=== PATIENT | male | born 1985 | race Caucasian/White ===

== ENCOUNTER 2017-05-18 17:06 | Observation (INO) | payer SELFPAY ==
[~2017-05-18] VITALS: Ht 170.2 cm; Wt 97.9 kg
[2017-05-18] MEDS ORDERED: aspirin 81mg tab.chew PO ONE (17:20)
[2017-05-18 17:49] LABS: BASOPHILS % (AUTO) 0.3 % (0-1); EOSINOPHILS # (AUTO) 0.2 X10'3 (0-0.9); EOSINOPHILS % (AUTO) 2.2 % (0-6); HEMATOCRIT 48.3 % (42.0-52.0); HEMOGLOBIN 16.7 g/dl (14.0-17.9); LYMPHOCYTES # (AUTO) 1.4 X10'3 (1.1-4.8); MEAN CORPUSCULAR HEMOGLOBIN 26.6 PG (27.0-31.0); MEAN CORPUSCULAR HGB CONC 34.6 % (33.0-36.5); MEAN CORPUSCULAR VOLUME 77.1 FL (78-98); MEAN PLATELET VOLUME 9.1 FL (7.4-10.4); MONOCYTES # (AUTO) 0.4 X10'3 (0-0.9); NEUTROPHILS # (AUTO) 5.4 X10'3 (1.8-7.7); NEUTROPHILS % (AUTO) 72.5 % (42-75); PLATELET COUNT 272 X10'3 (140-440); RED BLOOD COUNT 6.27 X10'6 (4.70-6.10); RED CELL DISTRIBUTION WIDTH 12.8 % (11.5-14.5); WHITE BLOOD COUNT 7.4 X10'3 (4.5-11.0)
[2017-05-18 18:01] LABS: INR 0.9 INR; PARTIAL THROMBOPLASTIN TIME 25 SECONDS (22-32); PROTHROMBIN TIME 9.5 SECONDS (9.0-12.0)
[2017-05-18 18:06] LABS: ALANINE AMINOTRANSFERASE 49 U/L (12-78); ALBUMIN 3.9 G/DL (3.4-5.0); ALBUMIN/GLOBULIN RATIO 0.9 (1.1-1.5); ALKALINE PHOSPHATASE 81 IU/L (46-116); ANION GAP 11 (8-16); ASPARTATE AMINO TRANSFERASE 20 U/L (10-37); BILIRUBIN,TOTAL 0.6 MG/DL (0.1-1.0); BLOOD UREA NITROGEN 18 MG/DL (7-18); BUN/CREATININE RATIO 17.3 (5.4-32.0); CALCIUM 9.3 MG/DL (8.5-10.1); CHLORIDE 102 MMOL/L (99-107); CREATININE 1.04 MG/DL (0.60-1.10); GLUCOSE 292 MG/DL (70-104); POTASSIUM 4.1 MMOL/L (3.5-5.1); SODIUM 138 MMOL/L (135-145); TOTAL CARBON DIOXIDE 25.3 MMOL/L (24-32); TOTAL PROTEIN 8.2 G/DL (6.4-8.2); eGFR 83 ML/MIN
[2017-05-18] MEDS ORDERED: nitroGLYCERIN 0.4mg SUBLingual tab SL PRN (21:15)
[2017-05-19] VITALS (10 sets, daily range): BP systolic 130–151; BP diastolic 94–107
[2017-05-19] MEDS ORDERED: mag hydrox/Alum hydrox/simeth 30ml oral suspension PO PRN (02:35)
[2017-05-19] MEDS ORDERED: ondansetron/PF 4mg/2ml inj IV PRN (02:35)
[2017-05-19] MEDS ORDERED: magnesium hydroxide 30ml (MOM) UD suspension PO PRN (02:35)
[2017-05-19] MEDS ORDERED: acetaminophen 325mg tablet PO PRN ×2 (02:35)
[2017-05-19] MEDS ORDERED: dextrose 50%-water 50ml dispensing syringe IV PRN ×2 (02:40)
[2017-05-19] MEDS ORDERED: MESSAGE TO PHARMACY PO ONE (02:40)
[2017-05-19] MEDS ORDERED: glucagon, human recombinant 1mg kit SUBCUT PRN (02:40)
[2017-05-19] MEDS ORDERED: insulin Lispro (HumaLOG) vial - multi-dose SQ SCH (02:40)
[2017-05-19] MEDS ORDERED: dextrose ORAL solution 15 GM/59 ML bottle PO PRN ×2 (02:40)
[2017-05-19 04:07] LABS: HEMOGLOBIN A1C 8.9 % (4.5-6.2)
[2017-05-19] MEDS ORDERED: NO HOME MEDS (07:28)
[2017-05-19] MEDS ORDERED: aminophylline 250mg/10ml inj. IV PRN (07:45)
[2017-05-19] MEDS ORDERED: metoprolol tartrate 1mg/ml inj IV PRN (07:45)
[2017-05-19] MEDS ORDERED: regadenoson 0.4mg/5ml syringe IV ONE ×2 (07:45→10:09)
[2017-05-19] MEDS ORDERED: nitroGLYCERIN 0.4mg SUBLingual tab SL PRN (07:45)
[2017-05-19] MEDS ORDERED: heparin, porcine 5000 units/ml vial SQ SCH (08:00)
[2017-05-19] MEDS ORDERED: aminophylline inj. 0 ML IV ONE (10:09)
[2017-05-19] MEDS ORDERED: insulin glargine (Lantus) pen - multi-dose SQ SCH (21:00)
== END 2017-05-19 14:09 | disposition left against medical advice (07) ==
LOC: ER 17:06 → ED HOLD 05-19 02:46
PROVIDERS: ADMIT Internal Medicine; ATTEND Internal Medicine
DX: R07.89 Other chest pain (principal); E78.00 Pure hypercholesterolemia, unspecified; E11.9 Type 2 diabetes mellitus without complications; I10 Essential (primary) hypertension; E78.5 Hyperlipidemia, unspecified; Z87.891 Personal history of nicotine dependence; Z82.3 Family history of stroke
CPT/HCPCS: 36415; 71045; 78452; 80053; 83036; 84484; 85025; 85610; 85730; 87070; 93005; 93017; 96372; 99285; A9500; G0378; J1644; J0280; J1815

== ENCOUNTER 2017-05-19 15:49 | Observation (INO) | payer SELFPAY ==
[~2017-05-19] VITALS: Ht 172.7 cm; Wt 96.0 kg
[~2017-05-19 15:49] MED LIST: NO HOME MEDS
[2017-05-19] MEDS ORDERED: aspirin 81mg tab.chew PO ONE (17:05)
[2017-05-19] MEDS ORDERED: mag hydrox/Alum hydrox/simeth 30ml oral suspension PO PRN (18:45)
[2017-05-19] MEDS ORDERED: thiamine 100mg/ml 2ml inj. IV ONE (18:45)
[2017-05-19] MEDS ORDERED: nitroGLYCERIN 0.4mg SUBLingual tab SL PRN (18:45)
[2017-05-19] MEDS ORDERED: MESSAGE TO PHARMACY PO ONE (18:45)
[2017-05-19] MEDS ORDERED: insulin Lispro (HumaLOG) vial - multi-dose SQ SCH (18:45)
[2017-05-19] MEDS ORDERED: LORazepam 1 MG tablet PO PRN (18:45)
[2017-05-19] MEDS ORDERED: magnesium hydroxide 30ml (MOM) UD suspension PO PRN (18:45)
[2017-05-19] MEDS ORDERED: magnesium 2GM in 50ml NS 50 ML IV PRN (18:45)
[2017-05-19] MEDS ORDERED: LORazepam 2 mg/ml vial IV PRN (18:45)
[2017-05-19] MEDS ORDERED: potassium Cl 20 mEq SR tablet PO PRN ×2 (18:45)
[2017-05-19] MEDS ORDERED: metoprolol tartrate 1mg/ml inj IV PRN (18:45)
[2017-05-19] MEDS ORDERED: potassium Cl 40MEQ/NS 500ml 500 ML IV PRN ×2 (18:45)
[2017-05-19] MEDS ORDERED: regadenoson 0.4mg/5ml syringe IV PRN (18:45)
[2017-05-19] MEDS ORDERED: acetaminophen 325mg tablet PO PRN (18:45)
[2017-05-19] MEDS ORDERED: magnesium Cl slow-release 64mg tablet PO PRN (18:45)
[2017-05-19] MEDS ORDERED: magnesium 4gm in 100ml NS 100 ML IV PRN (18:45)
[2017-05-19] MEDS ORDERED: dextrose ORAL solution 15 GM/59 ML bottle PO PRN ×2 (18:45)
[2017-05-19] MEDS ORDERED: glucagon, human recombinant 1mg kit SUBCUT PRN (18:45)
[2017-05-19] MEDS ORDERED: ondansetron/PF 4mg/2ml inj IV PRN (18:45)
[2017-05-19] MEDS ORDERED: dextrose 50%-water 50ml dispensing syringe IV PRN ×3 (18:45)
[2017-05-19] MEDS ORDERED: aminophylline 250mg/10ml inj. IV PRN (18:45)
[2017-05-19] MEDS ORDERED: morphine 4 MG/ML inj SYRINge IV PRN ×2 (18:45)
[2017-05-19] MEDS: heparin, porcine 5000 units/ml vial SQ SCH (19:46)
[2017-05-19] MEDS ORDERED: insulin glargine (Lantus) pen - multi-dose SQ SCH (21:00)
[2017-05-20] VITALS (9 sets, daily range): BP systolic 128–154; BP diastolic 80–104
[2017-05-20 06:17] LABS: BASOPHILS % (AUTO) 0.5 % (0-1); EOSINOPHILS # (AUTO) 0.2 X10'3 (0-0.9); EOSINOPHILS % (AUTO) 2.5 % (0-6); HEMOGLOBIN 16.2 g/dl (14.0-17.9); LYMPHOCYTES # (AUTO) 1.8 X10'3 (1.1-4.8); LYMPHOCYTES % (AUTO) 23.8 % (21-51); MEAN CORPUSCULAR HEMOGLOBIN 26.6 PG (27.0-31.0); MEAN CORPUSCULAR HGB CONC 34.4 % (33.0-36.5); MEAN CORPUSCULAR VOLUME 77.3 FL (78-98); MEAN PLATELET VOLUME 8.8 FL (7.4-10.4); MONOCYTES # (AUTO) 0.7 X10'3 (0-0.9); MONOCYTES % (AUTO) 9.3 % (2-12); NEUTROPHILS # (AUTO) 4.7 X10'3 (1.8-7.7); NEUTROPHILS % (AUTO) 63.9 % (42-75); PLATELET COUNT 247 X10'3 (140-440); RED BLOOD COUNT 6.08 X10'6 (4.70-6.10); RED CELL DISTRIBUTION WIDTH 12.9 % (11.5-14.5); WHITE BLOOD COUNT 7.4 X10'3 (4.5-11.0)
[2017-05-20 06:40] LABS: ALANINE AMINOTRANSFERASE 63 U/L (12-78); ALBUMIN 3.4 G/DL (3.4-5.0); ALBUMIN/GLOBULIN RATIO 0.9 (1.1-1.5); ALKALINE PHOSPHATASE 60 IU/L (46-116); ANION GAP 12 (8-16); BILIRUBIN,TOTAL 0.9 MG/DL (0.1-1.0); BLOOD UREA NITROGEN 19 MG/DL (7-18); BUN/CREATININE RATIO 21.8 (5.4-32.0); CALCIUM 9.3 MG/DL (8.5-10.1); CHLORIDE 104 MMOL/L (99-107); CHOL/HDL RATIO 5.4 (0.00-4.99); CHOLESTEROL 210 MG/DL (0-200); CREATININE 0.87 MG/DL (0.60-1.10); GLUCOSE 216 MG/DL (70-104); HDL CHOLESTEROL 39 MG/DL (35-60); LDL CHOLESTEROL 117 MG/DL (50-100); SODIUM 140 MMOL/L (135-145); TOTAL PROTEIN 7.3 G/DL (6.4-8.2); TRIGLYCERIDES 405 MG/DL (20-135); eGFR > 90 ML/MIN
[2017-05-20 06:47] LABS: ASPARTATE AMINO TRANSFERASE 31 U/L (10-37); BILIRUBIN,DIRECT 0.1 MG/DL (0-0.3); POTASSIUM 4.4 MMOL/L (3.5-5.1)
[2017-05-20] MEDS ORDERED: K and/or MAG REPLACEMENT MC SCH (08:00)
[2017-05-20] MEDS ORDERED: regadenoson 0.4mg/5ml syringe IV ONE (08:38)
[2017-05-20] MEDS ORDERED: aminophylline inj. 0 ML IV ONE (08:38)
[2017-05-20] MEDS: heparin, porcine 5000 units/ml vial SQ SCH (11:57)
== END 2017-05-20 13:00 | disposition home or self-care (01) ==
LOC: ER 15:50 → ED HOLD 18:43
PROVIDERS: ADMIT Family Medicine; ATTEND Family Medicine
DX: R07.89 Other chest pain (principal); E11.9 Type 2 diabetes mellitus without complications; F10.10 Alcohol abuse, uncomplicated; E78.00 Pure hypercholesterolemia, unspecified; I10 Essential (primary) hypertension; Z87.891 Personal history of nicotine dependence
CPT/HCPCS: 36415; 78452; 80053; 80061; 82248; 82948; 83735; 85025; 93017; 96372; 96374; 99285; A9500; G0378; J1644; J1815; J2785; J3411; 83036; J0280

== ENCOUNTER 2017-10-07 03:51 | Emergency (ER) | payer OTHER ==
[~2017-10-07] VITALS: Ht 170.2 cm; Wt 104.5 kg
[2017-10-07 05:02] VITALS: BP 151/92
== END 2017-10-07 05:05 | disposition home or self-care (01) ==
LOC: ER 03:51
DX: R07.89 Other chest pain (principal); E78.00 Pure hypercholesterolemia, unspecified; I10 Essential (primary) hypertension; E11.9 Type 2 diabetes mellitus without complications
CPT/HCPCS: 93005; 99283

== ENCOUNTER 2019-07-24 21:06 | Emergency (ER) | payer BC ==
[~2019-07-24] VITALS: Ht 172.7 cm; Wt 102.3 kg
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
[2019-07-24 22:13] VITALS: BP 153/93
== END 2019-07-24 22:11 | disposition home or self-care (01) ==
LOC: ER 21:08
DX: R00.0 Tachycardia, unspecified (principal); F15.90 Other stimulant use, unspecified, uncomplicated; R07.89 Other chest pain; E78.00 Pure hypercholesterolemia, unspecified; I10 Essential (primary) hypertension; E11.9 Type 2 diabetes mellitus without complications; Z72.89 Other problems related to lifestyle
CPT/HCPCS: 93005; 99283

== ENCOUNTER 2023-04-07 10:23 | Emergency (ER) | payer BC ==
[~2023-04-07] VITALS: Ht 167.6 cm; Wt 101.2 kg
[2023-04-07 10:42] LABS: BASOPHILS # (AUTO) 0.1 X10'3 (0-0.2); BASOPHILS % (AUTO) 0.7 % (0-1); EOSINOPHILS # (AUTO) 0.2 X10'3 (0-0.9); EOSINOPHILS % (AUTO) 2.3 % (0-6); HEMATOCRIT 48.3 % (42.0-52.0); LYMPHOCYTES # (AUTO) 2.3 X10'3 (1.1-4.8); LYMPHOCYTES % (AUTO) 24.9 % (21-51); MEAN CORPUSCULAR HEMOGLOBIN 25.4 PG (27.0-31.0); MEAN PLATELET VOLUME 7.9 FL (7.4-10.4); MONOCYTES # (AUTO) 0.7 X10'3 (0-0.9); MONOCYTES % (AUTO) 7.2 % (2-12); NEUTROPHILS # (AUTO) 6.1 X10'3 (1.8-7.7); NEUTROPHILS % (AUTO) 64.9 % (42-75); PLATELET COUNT 320 X10'3 (140-440); RED BLOOD COUNT 6.27 X10'6 (4.70-6.10); RED CELL DISTRIBUTION WIDTH 13.3 % (11.5-14.5); WHITE BLOOD COUNT 9.4 X10'3 (4.5-11.0)
[2023-04-07 10:56] LABS: ALANINE AMINOTRANSFERASE 75 U/L (12-78); ALBUMIN 4.3 G/DL (3.4-5.0); ALBUMIN/GLOBULIN RATIO 0.9 (1.1-1.5); ALKALINE PHOSPHATASE 72 IU/L (46-116); ANION GAP 9 (8-16); ASPARTATE AMINO TRANSFERASE 35 U/L (10-37); BILIRUBIN,TOTAL 0.8 MG/DL (0.1-1.0); BLOOD UREA NITROGEN 13 MG/DL (7-18); BUN/CREATININE RATIO 12.4 (10.0-20.0); CALCIUM 9.7 MG/DL (8.5-10.1); CHLORIDE 100 MMOL/L (99-107); CREATININE 1.05 MG/DL (0.60-1.10); GLUCOSE 182 MG/DL (70-104); POTASSIUM 4.3 MMOL/L (3.5-5.1); SODIUM 135 MMOL/L (135-145); TOTAL CARBON DIOXIDE 26.3 MMOL/L (24-32); eGFR 79 ML/MIN
[2023-04-07 11:06] LABS: PRO BRAIN NATRIURETIC PEPTIDE < 30 PG/ML (0-125)
[2023-04-07 13:31] VITALS: BP 116/75; PULSE 93; RESP 13; TEMP 98.8; O2SAT 98
== END 2023-04-07 13:34 | disposition home or self-care (01) ==
LOC: ER 10:24
DX: R00.2 Palpitations (principal); R42 Dizziness and giddiness; R19.7 Diarrhea, unspecified; E78.00 Pure hypercholesterolemia, unspecified; I10 Essential (primary) hypertension; E11.9 Type 2 diabetes mellitus without complications; Z79.899 Other long term (current) drug therapy
CPT/HCPCS: 36415; 71045; 80053; 83880; 84443; 84484; 85025; 93005; 99285

== ENCOUNTER 2023-06-15 20:18 | Emergency (ER) | payer BC ==
[~2023-06-15] VITALS: Ht 172.7 cm; Wt 96.0 kg
[2023-06-15 20:40] VITALS: TEMP 98.4
[2023-06-15 20:40] LABS: BASOPHILS # (AUTO) 0.1 X10'3 (0-0.2); BASOPHILS % (AUTO) 0.8 % (0-1); EOSINOPHILS # (AUTO) 0.2 X10'3 (0-0.9); EOSINOPHILS % (AUTO) 1.7 % (0-6); HEMATOCRIT 48.1 % (42.0-52.0); HEMOGLOBIN 16.4 g/dl (14.0-17.9); LYMPHOCYTES # (AUTO) 2.6 X10'3 (1.1-4.8); LYMPHOCYTES % (AUTO) 24.2 % (21-51); MEAN CORPUSCULAR HEMOGLOBIN 25.7 PG (27.0-31.0); MEAN CORPUSCULAR HGB CONC 34.1 g/dL (33.0-36.5); MEAN CORPUSCULAR VOLUME 75.4 FL (78-98); MEAN PLATELET VOLUME 7.9 FL (7.4-10.4); MONOCYTES # (AUTO) 0.8 X10'3 (0-0.9); MONOCYTES % (AUTO) 7.4 % (2-12); NEUTROPHILS # (AUTO) 7.1 X10'3 (1.8-7.7); NEUTROPHILS % (AUTO) 65.9 % (42-75); PLATELET COUNT 331 X10'3 (140-440); RED BLOOD COUNT 6.37 X10'6 (4.70-6.10); RED CELL DISTRIBUTION WIDTH 13.1 % (11.5-14.5); WHITE BLOOD COUNT 10.7 X10'3 (4.5-11.0)
[2023-06-15 21:03] LABS: ALBUMIN 4.1 G/DL (3.4-5.0); ANION GAP 11 (8-16); BLOOD UREA NITROGEN 19 MG/DL (7-18); BUN/CREATININE RATIO 13.7 (10.0-20.0); CALCIUM 9.5 MG/DL (8.5-10.1); CHLORIDE 101 MMOL/L (99-107); CREATININE 1.39 MG/DL (0.60-1.10); GLUCOSE 150 MG/DL (70-104); POTASSIUM 3.9 MMOL/L (3.5-5.1); SODIUM 137 MMOL/L (135-145); eCRCL 70 ML/MIN; eGFR 57 ML/MIN
[2023-06-15 22:11] VITALS: BP 119/80; PULSE 93; RESP 15; O2SAT 96
== END 2023-06-15 22:12 | disposition home or self-care (01) ==
LOC: ER 20:19
DX: R06.02 Shortness of breath (principal); R07.89 Other chest pain; R42 Dizziness and giddiness; E78.00 Pure hypercholesterolemia, unspecified; I10 Essential (primary) hypertension; E11.9 Type 2 diabetes mellitus without complications; Z72.89 Other problems related to lifestyle
CPT/HCPCS: 36415; 71045; 80048; 84484; 85025; 93005; 99285